=== PATIENT | female | born 1980 | race Caucasian/White ===

== ENCOUNTER → 2018-09-04 10:44 | Outpatient (CLI) | payer OTHER, SELFPAY ==
--- NOTE | 2018-09-04 10:45 | DI.RAD.S_ITS ---
PROCEDURE: XR HAND RT MIN 3V INDICATIONS: pain in basal joint and thumb dip TECHNIQUE: 4 views of the hand(s) acquired. COMPARISON: None. FINDINGS: Bones: No fractures or dislocations. Carpal bones are normally aligned. No suspicious bony lesions. Soft tissues: No suspicious soft tissue calcifications. IMPRESSION: No fracture. No focal osseous destruction to suggest advanced osteomyelitis. Dictated by: Yosef Roche M.D. on 09/04/2018 at 13:27 Approved by: Yosef Roche M.D. on 09/04/2018 at 13:29
== END ==
PROVIDERS: Family Provider Family Medicine; PCP Family Medicine; Visit Provider Family Medicine
DX: M79.641 Pain in right hand (principal)
CPT/HCPCS: 73130

== ENCOUNTER → 2018-09-22 12:07 | Outpatient (CLI) | payer OTHER, SELFPAY ==
--- NOTE | 2018-09-22 12:08 | DI.US.S_ITS ---
PROCEDURE: US PELVIC COMPLETE INDICATIONS: IRREGULAR BLEEDING AND CRAMPING TECHNIQUE: Real-time scanning was performed of the pelvic organs, with image documentation. Additional endovaginal scanning was necessary due to incomplete visualization of the adnexal and endometrial structures by transabdominal scanning. COMPARISON: [facility], US, PELVIC COMPLETE, 02/06/2015, 16:47. FINDINGS: Transabdominal scanning: Limited scanning through the kidneys shows no hydronephrosis. No pathologic free abdominal or pelvic fluid. Endovaginal scanning: Uterus: Uterus is normal in size at 8.7 x 5.9 x 6.4 cm. The endometrium measures 3 mm in combined thickness. There is mild irregularity seen along the endometrial stripe. An IUD is seen at its expected location. Ovaries: The right ovary measures 3.2 x 2.4 x 3.6 cm. The left ovary measures 2 x 1.7 x 1.7 cm. The ovaries have a normal sonographic appearance, with physiologic appearing cysts are seen. No adnexal masses are seen. IMPRESSION: No significant pelvic ultrasound abnormality is seen, although mild irregularity can be seen along the endometrial stripe. Physiologic appearing ovarian cysts are incidentally noted. The IUD is seen at its expected location. Dictated by: Leon Hernandez M.D. on 09/22/2018 at 13:09 Approved by: Leon Hernandez M.D. on 09/22/2018 at 13:11
== END ==
PROVIDERS: PCP Family Medicine; Visit Provider Family Medicine
DX: N92.6 Irregular menstruation, unspecified (principal); Z97.5 Presence of (intrauterine) contraceptive device
CPT/HCPCS: 76830; 76856

== ENCOUNTER → 2019-02-28 11:41 | Outpatient (CLI) | payer OTHER, SELFPAY ==
[2019-02-28 12:12] LABS: Add Manual Diff / Slide Review NO; Basophils Absolute Auto 0 /uL (0-100); Basophils Percent Auto 0.8 % (0-2); Eosinophils Absolute Auto 100 /uL (0-450); Eosinophils Percent Auto 1.9 % (2-4); Hematocrit 34.1 % (36-46); Hemoglobin 11.4 g/dL (12.0-16.0); Lymphocytes Absolute Auto 1000 /uL (1100-4500); Lymphocytes Percent Auto 23.2 % (25-40); Mean Corpuscular HGB Conc 33.4 % (30-36); Mean Corpuscular Volume 89.7 fL (80-100); Monocytes Absolute Auto 400 /uL (0-900); Neutrophils Absolute Auto 2700 /uL (1500-7000); Neutrophils Percent Auto 64.1 % (50-75); Platelet Count 182 X10^3/uL (150-400); Red Blood Cell Count 3.81 X10^6/uL (4.0-5.2); Red Cell Distribution Width 12.5 % (11.6-14.8); White Blood Cell Count 4.3 X10^3/uL (4.5-11.0)
[2019-02-28 13:08] LABS: HEMOLYSIS < 15 (0-50); Iron 31 ug/dL (37-170)
[2019-02-28 13:19] LABS: Percent Iron Saturation 9 % (15-50); Total Iron Binding Capacity 337 ug/dL (265-497); Transferrin 246 mg/dL (206-381)
[2019-02-28 13:58] LABS: Ferritin 6.7 ng/mL (6.27-137)
== END ==
PROVIDERS: PCP Family Medicine; Visit Provider Family Medicine
DX: D50.9 Iron deficiency anemia, unspecified (principal); D69.6 Thrombocytopenia, unspecified
CPT/HCPCS: 36415; 82728; 83540; 83550; 85025

== ENCOUNTER → 2019-04-09 10:13 | Outpatient (CLI) | payer OTHER, SELFPAY ==
[2019-04-09 11:17] LABS: Iron 71 ug/dL (37-170)
[2019-04-09 11:33] LABS: Reticulocyte Count, Percent 0.9 % (1.06-2.63)
[2019-04-09 11:36] LABS: Ferritin 97.2 ng/mL (6.27-137)
== END ==
PROVIDERS: PCP Family Medicine; Visit Provider Family Medicine
DX: R79.0 Abnormal level of blood mineral (principal)
CPT/HCPCS: 36415; 82728; 83540; 85045

== ENCOUNTER → 2019-09-28 09:09 | Outpatient (CLI) | payer OTHER, SELFPAY ==
[2019-09-28 10:47] LABS: Add Manual Diff / Slide Review NO; Basophils Absolute Auto 0 /uL (0-100); Basophils Percent Auto 0.6 % (0-2); Eosinophils Absolute Auto 100 /uL (0-450); Eosinophils Percent Auto 1.7 % (2-4); Hemoglobin 12.8 g/dL (12.0-16.0); Lymphocytes Absolute Auto 1000 /uL (1100-4500); Lymphocytes Percent Auto 18.7 % (25-40); Mean Corpuscular HGB Conc 34.7 % (30-36); Mean Corpuscular Hemoglobin 31.1 PG (26-34); Mean Corpuscular Volume 89.5 fL (80-100); Monocytes Absolute Auto 400 /uL (0-900); Monocytes Percent Auto 6.6 % (3-14); Neutrophils Absolute Auto 3900 /uL (1500-7000); Neutrophils Percent Auto 72.4 % (50-75); Platelet Count 148 X10^3/uL (150-400); Red Blood Cell Count 4.14 X10^6/uL (4.0-5.2); Red Cell Distribution Width 12.3 % (11.6-14.8); White Blood Cell Count 5.4 X10^3/uL (4.5-11.0)
== END ==
PROVIDERS: PCP Family Medicine; Visit Provider Family Medicine
DX: D50.9 Iron deficiency anemia, unspecified (principal)
CPT/HCPCS: 36415; 85025

== ENCOUNTER → 2020-10-24 15:46 | Outpatient (CLI) | payer OTHER, SELFPAY ==
[2020-10-24] MEDS: COVID-19 VACC(MODERNA-1)/PF 100 MCG/0.5 ML VIAL IM (15:53)
== END ==
PROVIDERS: PCP Family Medicine; Visit Provider Internal Medicine
DX: Z23 Encounter for immunization (principal)
CPT/HCPCS: 0011A; 91301

== ENCOUNTER → 2020-11-20 15:17 | Outpatient (CLI) | payer OTHER, SELFPAY ==
[2020-11-20] MEDS: COVID-19 VACC #2, MRNA(MOD) 100 MCG/0.5 ML VIAL IM (15:29)
== END ==
PROVIDERS: PCP Family Medicine; Visit Provider Internal Medicine
DX: Z23 Encounter for immunization (principal)
CPT/HCPCS: 0012A; 91301

== ENCOUNTER → 2021-05-04 08:14 | Outpatient (CLI) | payer OTHER, SELFPAY ==
[2021-05-04 09:22] LABS: Add Manual Diff / Slide Review NO; Basophils Absolute Auto 0 /uL (0-100); Basophils Percent Auto 0.6 % (0-2); Eosinophils Absolute Auto 100 /uL (0-450); Hematocrit 37.7 % (36-46); Hemoglobin 12.9 g/dL (12.0-16.0); Lymphocytes Absolute Auto 800 /uL (1100-4500); Lymphocytes Percent Auto 21.4 % (25-40); Mean Corpuscular HGB Conc 34.1 % (30-36); Mean Corpuscular Hemoglobin 30.9 PG (26-34); Mean Corpuscular Volume 90.8 fL (80-100); Monocytes Absolute Auto 300 /uL (0-900); Monocytes Percent Auto 8.2 % (3-14); Neutrophils Absolute Auto 2500 /uL (1500-7000); Neutrophils Percent Auto 66.8 % (50-75); Platelet Count 176 X10^3/uL (150-400); Red Blood Cell Count 4.15 X10^6/uL (4.0-5.2); Red Cell Distribution Width 12.7 % (11.6-14.8); White Blood Cell Count 3.7 X10^3/uL (4.5-11.0)
[2021-05-04 09:28] LABS: Alanine Aminotransferase 20 IU/L (<35); Albumin Globulin Ratio 1.3 (1.0-2.8); Alkaline Phosphatase 45 U/L (38-126); Aspartate Aminotransferase 26 IU/L (14-36); BUN Creatinine Ratio 17.9 (6-22); Bilirubin Total 0.5 mg/dL (0.2-1.3); Blood Urea Nitrogen 14 mg/dL (7-17); Calcium 9.2 mg/dL (8.4-10.2); Carbon Dioxide 27 mmol/L (22-32); Chloride 106 mmol/L (98-107); Cholesterol 189 mg/dL (140-199); Estimated Glomerular Filt Rate > 60.0 mL/min (>60); Glucose 94 mg/dL (70-100); HDL Cholesterol 39 mg/dL (40-60); HEMOLYSIS < 15 (0-50); LDL Cholesterol Calculated 126 mg/dL (<100); Potassium 4.7 mmol/L (3.4-5.1); Sodium 138 mmol/L (137-145); Triglycerides 122 mg/dL (35-150)
[2021-05-04 09:38] LABS: HEMOLYSIS < 15 (0-50); Iron 95 ug/dL (37-170)
[2021-05-04 09:50] LABS: Percent Iron Saturation 28 % (15-50); Total Iron Binding Capacity 342 ug/dL (265-497); Transferrin 252 mg/dL (206-381)
[2021-05-04 10:00] LABS: Ferritin 21 ng/mL (6-137)
== END ==
PROVIDERS: PCP Family Medicine; Referring Provider Family Medicine; Visit Provider Family Medicine
DX: D64.9 Anemia, unspecified (principal); D69.6 Thrombocytopenia, unspecified; N92.1 Excessive and frequent menstruation with irregular cycle; Z83.3 Family history of diabetes mellitus; R63.5 Abnormal weight gain
CPT/HCPCS: 36415; 80053; 80061; 82728; 83540; 83550; 84443; 85025

== ENCOUNTER → 2021-05-18 10:22 | Outpatient (CLI) | payer OTHER, SELFPAY ==
--- NOTE | 2021-05-18 10:23 | DI.US.S_ITS ---
PROCEDURE: US PELVIC COMPLETE INDICATIONS: ABNORMAL BLEEDING TECHNIQUE: Real-time scanning was performed of the pelvic organs, with image documentation. Additional endovaginal scanning was necessary due to incomplete visualization of the adnexal and endometrial structures by transabdominal scanning. COMPARISON: [facility], US, US PELVIC COMPLETE, 07/19/2019, 12:01. FINDINGS: Uterus: Uterus is normal in size at 11.2 x 5.6 x 5.8 cm. The endometrium measures 14.2 mm in combined thickness. 15 mm posterior intramural fibroid. Ovaries: Right ovary measures 2.5 x 1.6 x 1.8 cm and the left ovary 2.2 x 0.9 x 1.3 cm. No adnexal masses seen. Other: No pathologic free abdominal or pelvic fluid. IMPRESSION: 15 mm posterior intramural fibroid. Dictated by: Antoni Alberto [facility] Interpreted: Judd Kelly MD on 05/18/2021 at 11:26 Transcribed by: ALESSANDRO on 05/18/2021 at 11:28 Approved by: Judd Kelly M.D. on 05/18/2021 at 15:41
== END ==
PROVIDERS: PCP Family Medicine; Referring Provider Obstetrics & Gynecology; Visit Provider Obstetrics & Gynecology
DX: N92.1 Excessive and frequent menstruation with irregular cycle (principal); D50.0 Iron deficiency anemia secondary to blood loss (chronic); D25.1 Intramural leiomyoma of uterus
CPT/HCPCS: 76830; 76856

== ENCOUNTER → 2021-08-21 09:12 | Outpatient (CLI) | payer OTHER, SELFPAY ==
[2021-08-21 10:23] LABS: Add Manual Diff / Slide Review NO; Basophils Absolute Auto 0 /uL (0-100); Basophils Percent Auto 0.7 % (0-2); Eosinophils Absolute Auto 100 /uL (0-450); Eosinophils Percent Auto 2.6 % (2-4); Hematocrit 35.9 % (36-46); Hemoglobin 11.8 g/dL (12.0-16.0); Lymphocytes Absolute Auto 900 /uL (1100-4500); Lymphocytes Percent Auto 23.7 % (25-40); Mean Corpuscular HGB Conc 32.9 % (30-36); Mean Corpuscular Hemoglobin 28.3 PG (26-34); Monocytes Absolute Auto 300 /uL (0-900); Monocytes Percent Auto 8.3 % (3-14); Neutrophils Absolute Auto 2400 /uL (1500-7000); Neutrophils Percent Auto 64.7 % (50-75); Platelet Count 192 X10^3/uL (150-400); Red Blood Cell Count 4.17 X10^6/uL (4.0-5.2); Red Cell Distribution Width 13.2 % (11.6-14.8); White Blood Cell Count 3.8 X10^3/uL (4.5-11.0)
== END ==
PROVIDERS: PCP Family Medicine; Referring Provider Family Medicine; Visit Provider Family Medicine
DX: D64.9 Anemia, unspecified (principal); N92.1 Excessive and frequent menstruation with irregular cycle
CPT/HCPCS: 36415; 85025

== ENCOUNTER → 2021-08-25 09:14 | Outpatient (CLI) | payer OTHER, SELFPAY ==
[2021-08-25 11:25] LABS: Ferritin 9 ng/mL (6-137)
[2021-08-25 12:27] LABS: HEMOLYSIS < 15 (0-50); Iron 106 ug/dL (37-170)
[2021-08-25 12:38] LABS: Percent Iron Saturation 29 % (15-50); Total Iron Binding Capacity 369 ug/dL (265-497); Transferrin 285 mg/dL (206-381)
== END ==
PROVIDERS: PCP Family Medicine; Referring Provider Family Medicine; Visit Provider Family Medicine
DX: D50.0 Iron deficiency anemia secondary to blood loss (chronic) (principal); D69.6 Thrombocytopenia, unspecified; R89.9 Unspecified abnormal finding in specimens from other organs, systems and tissues
CPT/HCPCS: 36415; 82728; 83540; 83550

== ENCOUNTER → 2021-08-27 09:51 | Outpatient (CLI) | payer OTHER, SELFPAY ==
--- NOTE | 2021-08-27 09:52 | DI.RAD.S_ITS ---
PROCEDURE: XR NASAL BONES MIN 3V INDICATIONS: possible broken nose TECHNIQUE: 4 views of the nasal bones acquired. COMPARISON: None. FINDINGS: Bones: No fractures or dislocations. Nasal septum is midline. Normal nasociliary nerve grooves are noted. Soft tissues: No suspicious soft tissue calcifications. IMPRESSION: Normal nasal bone series. Dictated by: Lupillo Boland M.D. on 08/27/2021 at 15:25 Approved by: Lupillo Boland M.D. on 08/27/2021 at 15:27
== END ==
PROVIDERS: PCP Family Medicine; Referring Provider Nurse Practitioner Family; Visit Provider Nurse Practitioner Family
DX: S09.92XA Unspecified injury of nose, initial encounter (principal); X58.XXXA Exposure to other specified factors, initial encounter
CPT/HCPCS: 70160

== ENCOUNTER 2022-02-09 10:12 | Observation (INO) | payer OTHER, SELFPAY ==
[2022-02-09] VITALS (16 sets, daily range): BP systolic 110–138; BP diastolic 68–85; PULSE 61–90; RESP 10–20; TEMP 36.3–36.6; O2SAT 96–100; BMI 20.3
--- NOTE | 2022-02-09 | PATH_ITS ---
[facility] Accession Number: [id number] . 01 Material submitted: . fallopian tube - BILATERAL FALLOPIAN TUBES . 02 Diagnosis: Bilateral Fallopian Tubes, Bilateral Tubal Ligation: Fallopian tubes x2, complete cross sections; negative for atypia or malignancy. MRV 02/15/2022 1139 Local . 02 Electronically signed: . Julia Atwood MD, Pathologist NPI- [id number] . 01 Gross description: . The specimen is received in formalin, labeled bilateral fallopian tubes, and consists of two fimbriated fallopian tubes measuring 6.4 x 0.6 cm and 7.0 x 0.6 cm. Sectioning reveal an aggregate of hemorrhagic material involving the lumen of the lower fallopian tube adjacent to the fimbriae. The remaining sections reveal stellate patent lumens free of gross abnormalities. The specimen is representatively submitted as follows: . A1: Cross sections and employer relations representative sections of fimbriae from shorter fallopian tube. A2: Cross sections and employer relations representative sections of fimbriae from longer fallopian tube. ([id number]) /MRV 02/10/2022 1150 Local . 02 Pathologist provided ICD-10: Z30.2 . 02 CPT . 055272 Specimen Comment: A courtesy copy of this report has been sent to [phone] Performed at: 01 [facility] [address] [facility] [place], [place], [place] [id number] MD Robert Andersen MD Phone: [phone] Performed at: 02 [facility] [address] [place], [place] [id number] MD Masha Paul MD Phone: [phone]
--- NOTE | 2022-02-09 10:27 | DI.US.S_ITS ---
PROCEDURE: US PELVIC COMPLETE INDICATIONS: heavy vaginal bleeding TECHNIQUE: Real-time scanning was performed of the pelvic organs, with image documentation. Additional endovaginal scanning was necessary due to incomplete visualization of the adnexal and endometrial structures by transabdominal scanning. COMPARISON: [facility], , US PELVIC COMPLETE, 05/18/2021, 9:47. FINDINGS: Uterus: Uterus is anteverted and normal in size at 9.5 x 4.9 x 6.2 cm. The myometrium is homogeneous. The endometrium measures 7 mm combined thickness. There is a 0.7 x 0.4 x 0.8 cm hypodense lesion within the left, anterior aspect of the uterine fundus likely representing an intramural fibroid. Ovaries: The right ovary measures 2.0 x 1.4 x 2.1 cm. The left ovary measures 1.8 x 1.3 x 1.8 cm. The ovaries have a normal sonographic appearance. No adnexal masses are seen. The Other: No pathologic free abdominal or pelvic fluid. IMPRESSION: Pelvic ultrasound without acute sonographic abnormalities. Suspected subcentimeter intramural uterine fibroid. No abnormalities identified to explain patient's abnormal bleeding. We strive to produce accurate, complete, and clear reports of imaging services. To assist us in improving patient care, this report was composed using standard report templates and voice recognition software. Therefore, it may contain abnormal punctuation, insertions and/or omissions. Occasional wrong-word or sound-alike substitutions may occur. Though we review the report and make efforts to correct it, we do recommend that the report be read carefully in proper context to recognize any text inaccuracies. Dictated by: Don Andrew M.D. on 02/09/2022 at 12:14 Approved by: Don Andrew M.D. on 02/09/2022 at 12:18
--- NOTE | 2022-02-09 10:43 | ED.PREGNANCY ---
HPI - <Carlos Alberto Gaytan DO - Last Filed: 02/09/22 19:26> General Chief complaint: Vaginal Bleeding Stated complaint: Heavy menstrual bleeding Time Seen by Provider: 02/09/22 10:19 Source: patient Mode of arrival: Ambulatory Limitations: no limitations History of Present Illness HPI Narrative: 41-year-old female nonsmoker with noncontributory medical history presents for evaluation of increasingly heavy vaginal bleeding with the passage of clots over the past few days. She has been on control for at least the past 6 months without any change in her dosing or missed doses and tends to have very regular menses. She is sexually active but denies any chance of . She states that for the past few days she has passed large clots, most notably upon standing. Over the course of the past 24 hours she has become dizzy, weak and lightheaded. She has had fever or chills. She denies dysuria, frequency or urgency. She states she likely is bleeding through at least 1 pad per hour Related Data Previous Rx's Medication Instructions Recorded valacyclovir 1 gram tablet See Rx Instructions .ROUTE 01/06/22 .COMPLEX #4 tab dextroamphetamine-amphetamine 5 mg 5 mg PO DAILY #90 tab 02/01/22 tablet lisdexamfetamine 50 mg capsule 50 mg PO DAILY #90 cap 02/01/22 oxycodone 5 mg tablet 5 mg PO Q4H PRN #14 tab 02/09/22 Allergies Allergy/AdvReac Type Severity Reaction Status Date / Time miconazole AdvReac Intermediate Rash Verified 02/09/22 10:26 [From Neosporin AF] Review of Systems <DO Marlin Estrada Last Filed: 02/09/22 19:26> Review of Systems Narrative: GENERAL: Denies chills, fatigue, malaise, fever, sweats. HEENT: Denies sinus pain, ear pain, sore throat, difficulty swallowing, dizziness. RESPIRATORY: Denies dyspnea, cough, wheezing, hemoptysis, sputum. CARDIOVASCULAR: Denies chest pain, palpitations, orthopnea, edema, GASTROINTESTINAL: Denies nausea, vomiting, abdominal pain, diarrhea, constipation, melena. :see HPI MUSCULOSKELETAL: denies weakness, joint pain, or bony pain SKIN: Denies rash, skin lesions, or other NEUROLOGIC: Denies weakness, headache, numbness, change in speech, confusion, seizures, incoordination. PSYCHIATRIC: No concerning psychosocial issues. 12 point review of systems is negative except for those stated above Exam <Carlos Alberto Gaytan DO - Last Filed: 02/09/22 19:26> Narrative Exam Narrative: GENERAL: [41] year old patient appears stated age. Well-developed patient, in mild distress. HEAD: Atraumatic. Normocephalic. EYES: Pupils equal round and reactive. Extraocular motions intact. No scleral icterus. No injection or drainage. ENT: Nose without bleeding, purulent drainage. Throat without erythema, tonsillar hypertrophy or exudate. Airway patent. NECK: Trachea midline. Non tender CARDIOVASCULAR: Regular rate and rhythm without murmurs, gallops, or rubs. RESPIRATORY: Clear to auscultation. Breath sounds equal bilaterally. No wheezes, rales, or rhonchi. GASTROINTESTINAL: Abdomen soft, non-tender, nondistended. PELVIC: Multiple large clots removed, bleeding flown closed cervical os rather brisk and feels visual field within 30 seconds or less. EXTREMITIES: No edema or joint tenderness. BACK: Nontender without deformity or crepitance. No flank tenderness. NEURO: AOx3. SKIN: No rash or erythema of visible areas Initial Vital Signs Initial Vital Signs: Vital Signs Temperature 97.4 F L 02/09/22 10:20 Pulse Rate 90 02/09/22 10:20 Respiratory Rate 18 02/09/22 10:20 Blood Pressure 138/78 02/09/22 10:20 Pulse Oximetry 99 02/09/22 10:20 Course <Carlos Alberto Gaytan DO - Last Filed: 02/09/22 19:26> Orders Ordered: ED Orders 02/09/22 10:27 US pelvic complete Stat Type and Screen Stat 02/09/22 11:18 Urine Culture Stat Urine Microscopic Stat 02/09/22 11:40 Complete Blood Count AUTO DIFF Stat Comprehensive Metabolic Panel Stat HCG Quantitative /Beta subunit Stat 02/09/22 12:35 COVID19 -Nasal RAPID/Pre-Proc Stat Benzocaine (Benzocaine/Menthol 1 Ernesto Pkt) 1 each PO PRN PRN PRN Reason: Sore Throat Fentanyl (Fentanyl 100 Mcg/2 Ml Inj) 0 mcg IV Q5M PRN PRN Reason: Pain, Moderate (4-6) Hydromorphone HCl (Hydromorphone 2 Mg Inj) 0 mg IV Q5MIN PRN PRN Reason: Pain, Mild (1-3) Lactated Ringer's (Lactated Ringers) 1,000 mls @ 42 mls/hr IV CONT BILLY Last Admin: 02/09/22 19:24 Dose: 42 mls/hr Documented by: CARLOS A Infusion: 02/09/22 19:20 Dose: 0 mls/hr Documented by: CARLOS A Admin: 02/09/22 16:47 Dose: 42 mls/hr Documented by: NIC Lactated Ringer's (Lactated Ringers) 1,000 mls @ 100 mls/hr IV CONT BILLY Meperidine HCl (Meperidine 50 Mg/Ml Inj) 25 mg IV PACUNOW PRN PRN Reason: Moderate pain or shivering Ondansetron HCl (Ondansetron 4 Mg/2 Ml Inj) 4 mg IV NOW PRN PRN Reason: Nausea And Vomiting Oxycodone/Acetaminophen (Oxycodone/Acetaminophen 5/325 Tablet) 1 tab PO PACUNOW PRN PRN Reason: Mild or Moderate Pain Oxycodone/Acetaminophen (Oxycodone/Acetaminophen 5/325 Tablet) 1 tab PO Q4HR PRN PRN Reason: Pain, Moderate (4-6) Discontinued Medications Bupivacaine HCl 30 ml/ (Epinephrine HCl 0.15 mg) 0 ml INJ NOW ONE Stop: 02/09/22 18:12 Last Admin: 02/09/22 18:13 Dose: 20 ml Documented by: LARON Medroxyprogesterone Acetate (Medroxyprogesterone Acetate 10 Mg Tablet) 20 mg PO NOW ONE Stop: 02/09/22 13:46 Last Admin: 02/09/22 14:00 Dose: 20 mg Documented by: SHAE Medroxyprogesterone Acetate (Medroxyprogesterone Acetate 10 Mg Tablet) 20 mg PO NOW ONE Stop: 02/09/22 16:10 Last Admin: 02/09/22 16:45 Dose: 20 mg Documented by: NIC Consultations Consultation #1: Call to Dr. Mix, she has reviewed the clinical case up until this point including prior notes from her partners. She will evaluate the patient at bedside but likely will take to the OR this afternoon Vital Signs Vital signs: Vital Signs - 8 hr 02/09/22 12:37 02/09/22 13:34 02/09/22 14:00 Pulse Rate 77 76 79 Respiratory Rate Blood Pressure 126/71 111/71 112/71 Pulse Oximetry 96 100 100 02/09/22 14:30 02/09/22 15:00 Pulse Rate 80 76 Respiratory Rate 14 Blood Pressure 117/73 114/74 Pulse Oximetry 100 99 MDM - OB/Uterine Contractions <Carlos Alberto Gaytan DO - Last Filed: 02/09/22 19:26> Lab Data Result diagrams: 02/09/22 11:40 02/09/22 11:40 Labs: Lab Results 02/09/22 02/09/22 02/09/22 Range/Units 10:27 11:18 11:40 WBC 4.0 L (4.5-11.0) X10^3/uL RBC 3.84 L (4.0-5.2) X10^6/uL Hgb 10.7 L (12.0-16.0) g/dL Hct 32.0 L (36-46) % MCV 83.3 (80-100) fL MCH 27.9 (26-34) PG MCHC 33.5 (30-36) % RDW 13.5 (11.6-14.8) % Plt Count 190 (150-400) X10^3/uL Neut % (Auto) 63.2 (50-75) % Lymph % (Auto) 25.0 (25-40) % [place] % (Auto) 9.7 (3-14) % Eos % (Auto) 1.5 L (2-4) % Baso % (Auto) 0.6 (0-2) % Neut # (Auto) 2600 (6647-5494) /uL Lymph # (Auto) 1000 L (2351-2397) /uL [place] # (Auto) 400 (0-900) /uL Eos # (Auto) 100 (0-450) /uL Baso # (Auto) 0 (0-100) /uL Sodium (137-145) mmol/L Potassium (3.4-5.1) mmol/L Chloride (98-107) mmol/L Carbon Dioxide (22-32) mmol/L BUN (7-17) mg/dL Creatinine (0.52-1.04) mg/dL Estimated GFR (>60) mL/min BUN/Creatinine Ratio (6-22) Glucose (70-100) mg/dL Calcium (8.4-10.2) mg/dL Total Bilirubin (0.2-1.3) mg/dL AST (14-36) IU/L ALT (<35) IU/L Alkaline Phosphatase (38-126) U/L Total Protein (6.3-8.2) g/dL Albumin (3.5-5.0) g/dL Globulin (1.7-4.1) g/dL Albumin/Globulin Ratio (1.0-2.8) HCG, Quant mIU/mL Urine RBC 30-100/hpf H (0-5/HPF) Urine WBC 1-5/hpf (0-5/HPF) Ur Squamous Epith Cells 1-5 /hpf (0-5/HPF) Urine Bacteria None seen (None) Ur Culture Indicated? Cult not indicated SARS-CoV-2 (PCR) (Negative) Blood Type A Negative Antibody Screen Negative 02/09/22 02/09/22 Range/Units 11:40 12:35 WBC (4.5-11.0) X10^3/uL RBC (4.0-5.2) X10^6/uL Hgb (12.0-16.0) g/dL Hct (36-46) % MCV (80-100) fL MCH (26-34) PG MCHC (30-36) % RDW (11.6-14.8) % Plt Count (150-400) X10^3/uL Neut % (Auto) (50-75) % Lymph % (Auto) (25-40) % R[place]ford % (Auto) (3-14) % Eos % (Auto) (2-4) % Baso % (Auto) (0-2) % Neut # (Auto) (9547-5332) /uL Lymph # (Auto) (5804-9357) /uL Rutherford # (Auto) (0-900) /uL Eos # (Auto) (0-450) /uL Baso # (Auto) (0-100) /uL Sodium 139 (137-145) mmol/L Potassium 4.0 (3.4-5.1) mmol/L Chloride 107 (98-107) mmol/L Carbon Dioxide 29 (22-32) mmol/L BUN 18 H (7-17) mg/dL Creatinine 0.76 (0.52-1.04) mg/dL Estimated GFR > 60 (>60) mL/min BUN/Creatinine Ratio 23.7 H (6-22) Glucose 90 (70-100) mg/dL Calcium 8.5 (8.4-10.2) mg/dL Total Bilirubin 0.3 (0.2-1.3) mg/dL AST 24 (14-36) IU/L ALT 15 (<35) IU/L Alkaline Phosphatase 50 (38-126) U/L Total Protein 6.7 (6.3-8.2) g/dL Albumin 3.8 (3.5-5.0) g/dL Globulin 2.9 (1.7-4.1) g/dL Albumin/Globulin Ratio 1.3 (1.0-2.8) HCG, Quant < 2.4 mIU/mL Urine RBC (0-5/HPF) Urine WBC (0-5/HPF) Ur Squamous Epith Cells (0-5/HPF) Urine Bacteria (None) Ur Culture Indicated? SARS-CoV-2 (PCR) Negative (Negative) Blood Type Antibody Screen Point of Care Testing Test Results Negative Urine Dip Bedside Urine Glucose Negative Bedside Urine Bilirubin - Negative Bedside Urine Ketone - Negative Urine Specific [place] 1.015 Bedside Urine Occult Blood +++ Bedside Urine pH 7.5 Bedside Urine Protein +/- 15 Bedside Urine Urobilinogen - Negative Bedside Urine Nitrite - Negative Bedside Urine Leukocytes - Negative Esterase Imaging Data US - SERVICE MANAGER: Radiologist's Impression: [address] [address] Ultrasound Report Signed Patient: Karon Florentino MR#: [id number] : 1980 Acct:[id number] Age/Sex: 41 / F Date of Service: 02/09/22 Loc: ED Accession Number: [id number] ?? Procedure: US pelvic complete Ordering Provider: Carlos Alberto Gaytan D.O. PROCEDURE:? US PELVIC COMPLETE ? INDICATIONS:? heavy vaginal bleeding ? TECHNIQUE:? Real-time scanning was performed of the pelvic organs, with image documentation.? Additional endovaginal scanning was necessary due to incomplete visualization of the adnexal and endometrial structures by transabdominal scanning.? ? COMPARISON:? [facility], , US PELVIC COMPLETE, 05/18/2021, 9:47. ? FINDINGS:? ?? Uterus:? Uterus is anteverted and normal in size at 9.5 x 4.9 x 6.2 cm. The myometrium is homogeneous. ? The endometrium measures 7 mm combined thickness.? There is a 0.7 x 0.4 x 0.8 cm hypodense lesion within the left, anterior aspect of the uterine fundus likely representing an intramural fibroid. ? Ovaries:? The right ovary measures 2.0 x 1.4 x 2.1 cm. The left ovary measures 1.8 x 1.3 x 1.8 cm. The ovaries have a normal sonographic appearance. No adnexal masses are seen.? The? Other:? No pathologic free abdominal or pelvic fluid. ? ? IMPRESSION:? Pelvic ultrasound without acute sonographic abnormalities.? Suspected subcentimeter intramural uterine fibroid.? No abnormalities identified to explain patient's abnormal bleeding. ? ? We strive to produce accurate, complete, and clear reports of imaging services. To assist us in improving patient care, this report was composed using standard report templates and voice recognition software. Therefore, it may contain abnormal punctuation, insertions and/or omissions. Occasional wrong-word or sound-alike substitutions may occur. Though we review the report and make efforts to correct it, we do recommend that the report be read carefully in proper context to recognize any text inaccuracies. ? ? Dictated by: Don Andrew M.D. on 02/09/2022 at 12:14 ? ? Approved by: Don Andrew M.D. on 02/09/2022 at 12:18 ? Discharge Plan Departure Patient Disposition: Admitted to Surgery Clinical Impression: Abnormal vaginal bleeding Admit Date/Time: 02/09/22 15:04 Admit Provider: Ute Mix
[2022-02-09 11:37] LABS: Bacteria Urine None Seen; Culture Indicated Urine Cult Not Indicated; RBC Urine 30-100/HPF (0-5/HPF); Squamous Epithelial Cell Urine 1-5 /HPF (0-5/HPF); WBC Urine 1-5/HPF (0-5/HPF)
[2022-02-09 12:00] LABS: Add Manual Diff / Slide Review NO; Basophils Absolute Auto 0 /uL (0-100); Basophils Percent Auto 0.6 % (0-2); Eosinophils Absolute Auto 100 /uL (0-450); Eosinophils Percent Auto 1.5 % (2-4); Hemoglobin 10.7 g/dL (12.0-16.0); Lymphocytes Absolute Auto 1000 /uL (1100-4500); Mean Corpuscular HGB Conc 33.5 % (30-36); Mean Corpuscular Hemoglobin 27.9 PG (26-34); Mean Corpuscular Volume 83.3 fL (80-100); Monocytes Absolute Auto 400 /uL (0-900); Monocytes Percent Auto 9.7 % (3-14); Neutrophils Absolute Auto 2600 /uL (1500-7000); Neutrophils Percent Auto 63.2 % (50-75); Platelet Count 190 X10^3/uL (150-400); Red Blood Cell Count 3.84 X10^6/uL (4.0-5.2); Red Cell Distribution Width 13.5 % (11.6-14.8)
[2022-02-09 12:25] LABS: Alanine Aminotransferase 15 IU/L (<35); Albumin 3.8 g/dL (3.5-5.0); Albumin Globulin Ratio 1.3 (1.0-2.8); Alkaline Phosphatase 50 U/L (38-126); Aspartate Aminotransferase 24 IU/L (14-36); BUN Creatinine Ratio 23.7 (6-22); Bilirubin Total 0.3 mg/dL (0.2-1.3); Blood Urea Nitrogen 18 mg/dL (7-17); Calcium 8.5 mg/dL (8.4-10.2); Carbon Dioxide 29 mmol/L (22-32); Chloride 107 mmol/L (98-107); Estimated Glomerular Filt Rate > 60 mL/min (>60); Globulin 2.9 g/dL (1.7-4.1); Glucose 90 mg/dL (70-100); HEMOLYSIS < 15 (0-50); Sodium 139 mmol/L (137-145); Total Protein 6.7 g/dL (6.3-8.2)
[2022-02-09 12:41] LABS: HCG Quantitative /Beta subunit < 2.4 mIU/mL
[2022-02-09 13:04] LABS: COVID19 -Nasal RAPID Negative (Negative)
[2022-02-09] MEDS: MEDROXYPROGESTERONE ACETATE 10 MG TABLET 20 MG PO ×2 (14:00→16:45)
--- NOTE | 2022-02-09 15:29 | PC.NURSE ---
pt jewelry is off and in front pocket of green purse prior to OR. no earring in today, rings and watch only. pt cloting in belonging bag sent with patient to OR. laptop in bag with pt as well pt voided and undressed at 1525. only has underwear and socks on
[2022-02-09] MEDS: LACTATED RINGERS 1,000 ML 42 ML IV ×2 (16:47→19:24)
--- NOTE | 2022-02-09 17:44 | P.HP_ITS ---
History of Present Illness History of Present Illness Date Patient Seen: 02/09/22 Time Patient Seen: 13:30 Chief complaint: Heavy menstrual bleeding Narrative: Patient is a 41-year-old 4 para 4 who presents from the emergency department with abnormal uterine bleeding with significant anemia. On ultrasound she had a fibroid. She desires permanent sterilization. She has been on control pills to control the bleeding but this has not worked. 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 Grandfather Cirrhosis of liver Mother No problems noted. Grandmother Type 1 diabetes Sister No problems noted. Sister No problems noted. Sister No problems noted. Grandfather No problems noted. Social History: household members spouse Safety & Behavioral: Feels Safe in Current Yes Environment Been Physically Hurt or No Threatened By a Person Tobacco & Substance use: Smoking Status Never smoker alcohol intake never alcohol intake frequency 0-2 drinks per day Substance Use Type does not use Meds Home Medications and Allergies Home Medications Medication Instructions Recorded Confirmed Type drospirenone 3 mg-ethinyl 1 tab PO DAILY #84 tab 06/24/21 02/01/22 Rx estradiol 0.03 mg tablet (Irena (28)) valacyclovir 1 gram tablet See Rx Instructions .ROUTE 01/06/22 02/01/22 Rx .COMPLEX #4 tab dextroamphetamine-amphetamine 5 mg 5 mg PO DAILY #90 tab 02/01/22 02/01/22 Rx tablet lisdexamfetamine 50 mg capsule 50 mg PO DAILY #90 cap 02/01/22 02/01/22 Rx oxycodone 5 mg tablet 5 mg PO Q4H PRN #14 tab 02/09/22 Rx Allergies Allergy/AdvReac Type Severity Reaction Status Date / Time miconazole AdvReac Intermediate Rash Verified 02/09/22 10:26 [From Neosporin AF] Exam Vital Signs (past 8 hours): - 02/09/22 10:20 02/09/22 12:37 02/09/22 13:34 Temperature 97.4 F L Pulse Rate 90 77 76 Respiratory Rate 18 Blood Pressure 138/78 126/71 111/71 Pulse Oximetry 99 96 100 02/09/22 14:00 02/09/22 14:30 02/09/22 15:00 Temperature Pulse Rate 79 80 76 Respiratory Rate 14 Blood Pressure 112/71 117/73 114/74 Pulse Oximetry 100 100 99 02/09/22 16:31 Temperature 97.9 F Pulse Rate 80 Respiratory Rate 20 Blood Pressure 116/77 Pulse Oximetry 98 Oxygen Delivery Method Room Air Narrative Exam Narrative: HEENT: No thyromegaly, no anterior cervical or supraclavicular lymphadenopathy. Lungs:Clear to auscultation bilaterally, no wheezes. Cardiovascular: Regular rate and rhythm, no murmurs, rubs, or gallops. Abdomen: No scars. No hepatosplenomegaly. No masses palpable. External genitalia: Normal Vagina: Normal Cervix: Normal Bimanual exam: 10 Week size anteverted uterus. Mobile. No adnexal masses or tenderness Extremities: No edema Objective Labs Result Diagrams: 02/09/22 11:40 02/09/22 11:40 Labs: Laboratory Results - last 24 hr 02/09/22 02/09/22 02/09/22 10:27 11:18 11:40 WBC 4.0 L RBC 3.84 L Hgb 10.7 L Hct 32.0 L MCV 83.3 MCH 27.9 MCHC 33.5 RDW 13.5 Plt Count 190 Neut % (Auto) 63.2 Lymph % (Auto) 25.0 [place] % (Auto) 9.7 Eos % (Auto) 1.5 L Baso % (Auto) 0.6 Neut # (Auto) 2600 Lymph # (Auto) 1000 L [place] # (Auto) 400 Eos # (Auto) 100 Baso # (Auto) 0 Sodium Potassium Chloride Carbon Dioxide BUN Creatinine Estimated GFR BUN/Creatinine Ratio Glucose Calcium Total Bilirubin AST ALT Alkaline Phosphatase Total Protein Albumin Globulin Albumin/Globulin Ratio HCG, Quant Urine RBC 30-100/hpf H Urine WBC 1-5/hpf Ur Squamous Epith Cells 1-5 /hpf Urine Bacteria None seen Ur Culture Indicated? Cult not indicated SARS-CoV-2 (PCR) Blood Type A Negative Antibody Screen Negative 02/09/22 02/09/22 11:40 12:35 WBC RBC Hgb Hct MCV MCH MCHC RDW Plt Count Neut % (Auto) Lymph % (Auto) [place] % (Auto) Eos % (Auto) Baso % (Auto) Neut # (Auto) Lymph # (Auto) [place] # (Auto) Eos # (Auto) Baso # (Auto) Sodium 139 Potassium 4.0 Chloride 107 Carbon Dioxide 29 BUN 18 H Creatinine 0.76 Estimated GFR > 60 BUN/Creatinine Ratio 23.7 H Glucose 90 Calcium 8.5 Total Bilirubin 0.3 AST 24 ALT 15 Alkaline Phosphatase 50 Total Protein 6.7 Albumin 3.8 Globulin 2.9 Albumin/Globulin Ratio 1.3 HCG, Quant < 2.4 Urine RBC Urine WBC Ur Squamous Epith Cells Urine Bacteria Ur Culture Indicated? SARS-CoV-2 (PCR) Negative Blood Type Antibody Screen Assessment & Plan Assessment & Plan narrative: Assessment: 41-year-old 4 para 4 with abnormal uterine bleeding Fibroid uterus Oral contraceptives failed to control the bleeding Desires permanent sterilization Plan: Laparoscopic bilateral salpingectomy, D&C hysteroscopy with possible resection of fibroid, endometrial ablation The risks, benefits, and alternatives to the procedure were explained to the patient. The risks including bleeding, infection, injury to the bowel, bladder, ureters, or uterine perforation. She understands these risks and agrees to proceed. A full par Q was held and consent form was signed. COVID-19 COVID-19 status: Negative Result date/Date tested (Pos, Neg/Pending): 02/09/22 Time Spent With Patient Time with patient: less than 30 minutes Critical Care time: I spent a total of [] minutes of critical care time on this patient's care today; this time is exclusive of procedural time.
--- NOTE | 2022-02-09 17:47 | PM.PREOP ---
Pre-operative Note COVID-19 COVID-19 status: Negative Result date/Date tested (Pos, Neg/Pending): 02/09/22 Criteria for continued procedure: Deterioration of the patient's condition or overall health and Non-surgical alternatives not available or appropriate per current SOC Interval Note History & Physical reviewed/Exam performed by Physician: Yes Changes to H&P: No H&P completed within 30 days and has changed as indicated here:: 02/09/22
[2022-02-09] MEDS: BUPIVACAINE 0.5% (PF) 30 ML, EPINEPHrine 0.15 MG INJ (18:13)
--- NOTE | 2022-02-09 19:13 | P.OP_ITS ---
Operative Date/Time/Diagnoses Date of procedure: 02/09/22 Time of procedure: 19:14 Pre-op diagnosis: Abnormal uterine bleeding Menorrhagia Desires permanent sterilization Anemia Post-op diagnosis: same Procedure & Clinicians Procedure: Procedures Operation Date: 02/09/22 16:00 Actual Procedure Side Surgeon p Laparoscopic Salpingectomy Bilateral Ute Mix MD p Hysteroscopy D&C w/Novasure Endometrial Ablation Ute Mix MD Indications: Abnormal uterine bleeding Menorrhagia Anemia Desires permanent sterilization Surgeon: Ute Mix Anesthesia Type: General and Local Operative Notes Findings: 8 week size anteverted uterus Normal tubes and ovaries Normal liver and gallbladder Normal appendix Blood in the pelvis Length equal 4.5 With equal 3.0 Power equal 74 w Time equals 1 minute and 31 seconds Closure Type: primary Specimen(s): left tube and right tube Estimated blood loss (mL): 5 Blood products transfused: none Procedure in detail: After informed consent was obtained, the patient was taken to the operating room where she was placed in the dorsal supine position. After adequate general endotracheal anesthesia was achieved, she was placed in the dorsal lithotomy position, and prepped and draped in the usual sterile fashion. A time-out was performed. A bivalve speculum was placed into the vagina and the anterior lip of the cervix was grasped with a single-tooth tenaculum. The cervical os was sequentially dilated until the Zumi uterine manipulator could pass easily into the endometrial cavity. The single-tooth tenaculum was removed from the anterior lip of the cervix. The bivalve speculum was removed from the vagina. Attention was then turned to the abdomen where 6 cc of 0.5% Marcaine with epinephrine were injected in the umbilical fold. A 5 mm incision was made. The Veress needle was placed into the peritoneal cavity, and its placement confirmed by aspiration and drop test. The abdominal cavity was insufflated with 3.2 L of CO2. The Veress needle was removed, and a 5 mm trocar was placed without difficulty. Initial inspection of the pelvis and abdomen revealed the findings noted above. Two other incisions were made 4 cm lateral to the midline at the level of the umbilicus after 6 cc of 0.5% Marcaine with epinephrine were injected. Two 5 mm trocars were placed under direct visualization. The pelvis was examined. There was some blood in the posterior cul-de-sac. The right tube was grasped with an atraumatic grasper. Using the power seal the mesosalpinx was cauterized and cut all the way down to the cornua of the uterus. The tube was amputated at the cornua. The tube was removed through the 5 mm trocar. This was repeated on the patient's left side. Hemostasis was achieved. The pelvis was copiously irrigated with warm normal saline. No bleeding was noted. The instruments were removed from the abdomen. The CO2 was allowed to escape. The incisions were repaired with 4 0 Monocryl in a subcuticular fashion. Steri- Strips and Allevyn dressings were placed. Attention was then turned to the vagina where the Zumi uterine manipulator was removed from the uterus. The cervix was dilated to the # 8 Hegar dilator. The hysteroscope passed easily into the endometrial cavity. Both fallopian tube ostia were observed. There were no polyps or fibroids visible. The hysteroscope was removed. The uterus was measured from the internal os to the fundus and measured 4.5 cm. This was set on the NovaSure catheter and the generator. The NovaSure catheter passed easily into the endometrial cavity and was opened. The with of the uterus was 3.0 cm. This was set on the generator. The cervix was capped, the cavity assessment was performed and passed. The cycle was initiated and lasted 1 minute and 31 seconds. The power was 74 w. At the completion of the cycle the NovaSure catheter was closed, the cervix was uncapped, and the catheter was removed from the uterus. The single-tooth tenaculum was removed from the anterior lip of the cervix. The bivalve speculum was removed from the vagina. Sponge, lap, and instrument counts were correct x2. The patient tolerated the procedure well, and was taken to PACU in stable condition. Complications: none Post-operative Condition: stable Disposition: PACU Plan for aftercare: Home after recovery
[2022-02-09] MEDS: ONDANSETRON 4 MG/2 ML INJ IV (19:31)
[2022-02-09] MEDS: fentaNYL 100 MCG/2 ML INJ IV (19:32)
[2022-02-09] MEDS: OXYCODONE/ACETAMINOPHEN 5/325 TABLET 1 TAB PO (19:32)
== END 2022-02-09 20:15 | disposition home or self-care (01) ==
LOC: ED 14:00 → AC 15:05
PROVIDERS: Admitting Provider Obstetrics & Gynecology; Emergency Provider Emergency Medicine; PCP Family Medicine; Visit Provider Obstetrics & Gynecology
PROC: 0UT74ZZ Resection of Bilateral Fallopian Tubes, Percutaneous Endoscopic Approach (ICD-10-PCS; CPT 58661; principal; 2022-02-09 16:00)
PROC: 0U5B8ZZ Destruction of Endometrium, Via Natural or Artificial Opening Endoscopic (ICD-10-PCS; CPT 58563; 2022-02-09 16:00)
DX: N93.9 Abnormal uterine and vaginal bleeding, unspecified (principal); Z30.2 Encounter for sterilization; D64.9 Anemia, unspecified; N92.0 Excessive and frequent menstruation with regular cycle; Z20.822 Contact with and (suspected) exposure to COVID-19
CPT/HCPCS: 58661; 58563; 36415; 76830; 76856; 80053; 81003; 81015; 81025; 84702; 85025; 86850; 86900; 86901; 87086; 87635; 96374; 96375; 99284; C9803; G0378; J0171; J0330; J1100; J1885; J2405; J2704; J3010

== ENCOUNTER → 2022-05-03 09:53 | Outpatient (CLI) | payer OTHER, SELFPAY ==
[2022-05-03 11:10] LABS: Add Manual Diff / Slide Review NO; Basophils Absolute Auto 0 /uL (0-100); Eosinophils Absolute Auto 100 /uL (0-450); Eosinophils Percent Auto 4.7 % (2-4); Hematocrit 32.2 % (36-46); Hemoglobin 10.1 g/dL (12.0-16.0); Lymphocytes Absolute Auto 800 /uL (1100-4500); Lymphocytes Percent Auto 24.6 % (25-40); Mean Corpuscular HGB Conc 31.4 % (30-36); Mean Corpuscular Hemoglobin 23.9 PG (26-34); Monocytes Absolute Auto 300 /uL (0-900); Monocytes Percent Auto 9.8 % (3-14); Neutrophils Absolute Auto 1800 /uL (1500-7000); Neutrophils Percent Auto 59.9 % (50-75); Platelet Count 197 X10^3/uL (150-400); Red Blood Cell Count 4.24 X10^6/uL (4.0-5.2); Red Cell Distribution Width 15.7 % (11.6-14.8); White Blood Cell Count 3.1 X10^3/uL (4.5-11.0)
[2022-05-03 11:56] LABS: HEMOLYSIS < 15 (0-50); Iron 20 ug/dL (37-170)
[2022-05-03 12:06] LABS: Percent Iron Saturation 5 % (15-50); Total Iron Binding Capacity 393 ug/dL (265-497); Transferrin 284 mg/dL (206-381)
== END ==
PROVIDERS: PCP Pediatrics; Referring Provider Pediatrics; Visit Provider Pediatrics
DX: D64.9 Anemia, unspecified (principal); N92.1 Excessive and frequent menstruation with irregular cycle; N93.9 Abnormal uterine and vaginal bleeding, unspecified
CPT/HCPCS: 36415; 83540; 83550; 85025

== ENCOUNTER → 2022-08-11 13:00 | Outpatient (CLI) | payer OTHER, SELFPAY ==
[2022-08-11 13:31] LABS: Hematocrit 40.7 % (36-46); Hemoglobin 13.7 g/dL (12.0-16.0); Mean Corpuscular HGB Conc 33.7 % (30-36); Mean Corpuscular Hemoglobin 29.1 PG (26-34); Mean Corpuscular Volume 86.5 fL (80-100); Platelet Count 169 X10^3/uL (150-400); Red Cell Distribution Width 17.3 % (11.6-14.8); White Blood Cell Count 3.8 X10^3/uL (4.5-11.0)
[2022-08-11 14:23] LABS: Ferritin 78 ng/mL (6-137)
[2022-08-11 14:24] LABS: HEMOLYSIS < 15 (0-50); Iron 128 ug/dL (37-170)
[2022-08-11 14:35] LABS: Percent Iron Saturation 44 % (15-50); Total Iron Binding Capacity 288 ug/dL (265-497); Transferrin 209 mg/dL (206-381)
== END ==
PROVIDERS: PCP Family Medicine; Referring Provider Registered Nurse Diabetes Educator; Visit Provider Registered Nurse Diabetes Educator
DX: D50.9 Iron deficiency anemia, unspecified (principal)
CPT/HCPCS: 36415; 82728; 83540; 83550; 85027

== ENCOUNTER → 2022-12-10 13:49 | Outpatient (CLI) | payer OTHER, SELFPAY ==
[2022-12-10 15:10] LABS: Hematocrit 41.4 % (36-46); Hemoglobin 13.5 g/dL (12.0-16.0); Mean Corpuscular HGB Conc 32.7 % (30-36); Mean Corpuscular Hemoglobin 29.9 PG (26-34); Mean Corpuscular Volume 91.4 fL (80-100); Platelet Count 197 X10^3/uL (150-400); Red Blood Cell Count 4.53 X10^6/uL (4.0-5.2); Red Cell Distribution Width 12.6 % (11.6-14.8)
[2022-12-10 15:14] LABS: HEMOLYSIS < 15 (0-50); Iron 82 ug/dL (37-170)
[2022-12-10 15:23] LABS: Alanine Aminotransferase 20 IU/L (<35); Albumin Globulin Ratio 1.6 (1.0-2.8); Alkaline Phosphatase 57 U/L (38-126); Aspartate Aminotransferase 23 IU/L (14-36); BUN Creatinine Ratio 25.5 (6-22); Bilirubin Total 0.5 mg/dL (0.2-1.3); Blood Urea Nitrogen 14 mg/dL (7-17); Calcium 9.3 mg/dL (8.4-10.2); Carbon Dioxide 24 mmol/L (22-32); Chloride 99 mmol/L (98-107); Estimated Glomerular Filt Rate > 60 mL/min (>60); Globulin 3.2 g/dL (1.7-4.1); Glucose 93 mg/dL (70-100); HEMOLYSIS < 15 (0-50); Potassium 3.7 mmol/L (3.4-5.1); Sodium 139 mmol/L (137-145); Total Protein 8.2 g/dL (6.3-8.2)
[2022-12-10 15:51] LABS: Ferritin 83 ng/mL (6-137)
[2022-12-10 19:37] LABS: Transferrin 222 mg/dL (206-381)
[2022-12-10 20:34] LABS: Percent Iron Saturation 27 % (15-50); Total Iron Binding Capacity 306 ug/dL (265-497)
== END ==
PROVIDERS: PCP Family Medicine; Referring Provider Family Medicine; Visit Provider Family Medicine
DX: F98.8 Other specified behavioral and emotional disorders with onset usually occurring in childhood and adolescence (principal); N92.1 Excessive and frequent menstruation with irregular cycle
CPT/HCPCS: 36415; 80053; 82728; 83540; 83550; 85027

== ENCOUNTER → 2022-12-17 14:47 | Outpatient (CLI) | payer OTHER, SELFPAY ==
--- NOTE | 2022-12-17 14:48 | DI.US.S_ITS ---
PROCEDURE: US PELVIC COMPLETE INDICATIONS: Menorrhagia TECHNIQUE: Real-time scanning was performed of the pelvic organs, with image documentation. Additional endovaginal scanning was necessary due to incomplete visualization of the adnexal and endometrial structures by transabdominal scanning. COMPARISON: [facility], , US PELVIC COMPLETE, 02/09/2022, 11:05. FINDINGS: Uterus: Uterus is anteverted and normal in size at 9.1 x 6.1 x 5.1 cm. The myometrium is heterogeneous with a focus measuring 9 x 10 x 7 mm in the mid posterior intramural region. The endometrium measures 3 mm combined thickness. Endometrium is mildly heterogeneous. Ovaries: The right ovary measures 1.5 x 2.3 x 2.1 cm, with a calculated ovarian volume of 4 cc. The left ovary measures 2.3 x 2.5 x 1.4 cm, with a calculated ovarian volume of 4 cc. The ovaries have a normal sonographic appearance. Less than 12 follicles can be seen in each ovary. No adnexal masses are seen. Other: No pathologic free abdominal or pelvic fluid. IMPRESSION: Focus of heterogeneous echogenicity within the uterus suggestive of fibroids. We strive to produce accurate, complete, and clear reports of imaging services. To assist us in improving patient care, this report was composed using standard report templates and voice recognition software. Therefore, it may contain abnormal punctuation, insertions and/or omissions. Occasional wrong-word or sound-alike substitutions may occur. Though we review the report and make efforts to correct it, we do recommend that the report be read carefully in proper context to recognize any text inaccuracies. Dictated by: Karina Bruno M.D. on 12/17/2022 at 16:50 Approved by: Karina Bruno M.D. on 12/17/2022 at 16:55
== END ==
PROVIDERS: PCP Family Medicine; Referring Provider Obstetrics & Gynecology; Visit Provider Obstetrics & Gynecology
DX: N93.9 Abnormal uterine and vaginal bleeding, unspecified (principal)
CPT/HCPCS: 76830; 76856; 93976

== ENCOUNTER → 2023-01-24 10:48 | Outpatient (CLI) | payer OTHER, SELFPAY ==
--- NOTE | 2023-01-24 10:50 | DI.MG.S_ITS ---
BILATERAL DIGITAL SCREENING MAMMOGRAM 3D/2D WITH CAD: 01/24/2023 CLINICAL: Routine screening. Baseline exam. No prior exams were available for comparison. Both breasts are extremely dense, which lowers the sensitivity of mammography (category d />75% glandular tissue). Current study was also evaluated with a Computer Aided Detection (CAD) system. No significant masses, calcifications, or other findings are seen in either breast. IMPRESSION: NEGATIVE There is no mammographic evidence of malignancy. A 1 year screening mammogram is recommended. Based on the Tyrer Cuzick model (a risk assessment model) the patient's lifetime risk is 17.3% and her 10 year risk is 2.4%. According to the ACR, ACS, and NCCN guidelines, an annual breast MRI exam along with mammogram is recommended if the patient's lifetime risk is 20% or greater. This exam was interpreted at Station ID: [id number]. NOTE: For mammograms, a report in lay terms will be sent to the patient. Approximately 15% of breast malignancies will not be visualized mammographically. In the management of a palpable breast mass, a negative mammogram must not discourage biopsy of a clinically suspicious lesion. Electronically Signed By: Ciera cook/dalia:01/24/2023 13:30:13 letter sent: Normal Exam ACR BI-RADS Category 1: Negative 3341F
== END ==
PROVIDERS: PCP Family Medicine; Referring Provider Family Medicine; Visit Provider Family Medicine
DX: Z12.31 Encounter for screening mammogram for malignant neoplasm of breast (principal)
CPT/HCPCS: 77063; 77067

== ENCOUNTER 2023-03-28 17:46 | Emergency (ER) | payer OTHER, SELFPAY ==
[2023-03-28 18:02] VITALS: BP 115/58; PULSE 90; RESP 12; TEMP 36.9; O2SAT 100; BMI 20.7
[2023-03-28 18:37] LABS: Add Manual Diff / Slide Review NO; Basophils Absolute Auto 0 /uL (0-100); Basophils Percent Auto 0.7 % (0-2); Eosinophils Absolute Auto 0 /uL (0-450); Eosinophils Percent Auto 0.7 % (2-4); Hematocrit 35.5 % (36-46); Hemoglobin 11.9 g/dL (12.0-16.0); Lymphocytes Absolute Auto 2100 /uL (1100-4500); Lymphocytes Percent Auto 50.3 % (25-40); Mean Corpuscular HGB Conc 33.5 % (30-36); Mean Corpuscular Hemoglobin 29.6 PG (26-34); Mean Corpuscular Volume 88.3 fL (80-100); Monocytes Absolute Auto 400 /uL (0-900); Monocytes Percent Auto 9.5 % (3-14); Neutrophils Absolute Auto 1600 /uL (1500-7000); Neutrophils Percent Auto 38.8 % (50-75); Platelet Count 174 X10^3/uL (150-400); Red Blood Cell Count 4.01 X10^6/uL (4.0-5.2); Red Cell Distribution Width 13.7 % (11.6-14.8); White Blood Cell Count 4.2 X10^3/uL (4.5-11.0)
[2023-03-28 18:51] LABS: Pregnancy Test Serum,Qual Negative (Negative)
[2023-03-28 18:52] LABS: Alanine Aminotransferase 205 IU/L (<35); Albumin 4.2 g/dL (3.5-5.0); Albumin Globulin Ratio 1.2 (1.0-2.8); Alkaline Phosphatase 160 U/L (38-126); Aspartate Aminotransferase 82 IU/L (14-36); BUN Creatinine Ratio 22.4 (6-22); Bilirubin Total 0.5 mg/dL (0.2-1.3); Blood Urea Nitrogen 13 mg/dL (7-17); Calcium 8.9 mg/dL (8.4-10.2); Carbon Dioxide 30 mmol/L (22-32); Chloride 103 mmol/L (98-107); Creatine Kinase 35 U/L (30-135); Estimated Glomerular Filt Rate > 60 mL/min (>60); Globulin 3.5 g/dL (1.7-4.1); Glucose 122 mg/dL (70-100); HEMOLYSIS < 15 (0-50); Lipase 97 U/L (23-300); Potassium 3.6 mmol/L (3.4-5.1); Sodium 138 mmol/L (137-145); Total Protein 7.7 g/dL (6.3-8.2)
[2023-03-28 19:02] LABS: Troponin I 0.038 ng/mL (0.01-0.034)
[2023-03-28 21:48] LABS: Creatine Kinase 26 U/L (30-135)
[2023-03-28 22:01] LABS: Troponin I 0.039 ng/mL (0.01-0.034)
--- NOTE | 2023-03-28 22:18 | ED_ITS ---
HPI - Neuro Symptoms/Deficit General Chief Complaint: Neuro Symptoms/Deficit Stated Complaint: Face tingling/numbness worsening 3/4 days, jaw sourav Time Seen by Provider: 03/28/23 18:26 Source: patient Mode of arrival: Ambulatory History of Present Illness HPI Narrative: Patient is a 42-year-old female is here for evaluation of proximally 2 weeks of feeling poorly and having fatigue. She states she initially had some tingling in her right hand and right arm that has moved up to the right side of her face and then is now encompassing both sides of her face. She is not having any tingling in her hands or arms. She also had a day or 2 of having fevers which have resolved. She would other family members who had symptoms as well. No sore throat. No headache. No abdominal pain. No nausea or vomiting. No urinary symptoms. No change in bowel habits. On Anticoagulants: No Related Data Previous Rx's Medication Instructions Recorded valacyclovir 1 gram tablet See Rx Instructions .Route 01/06/22 .COMPLEX #4 tabs dextroamphetamine-amphetamine 5 mg 5 mg PO QPM ADHD #30 tabs 03/07/23 tablet lisdexamfetamine 50 mg capsule 50 mg PO DAILY #90 caps 03/07/23 Allergies Allergy/AdvReac Type Severity Reaction Status Date / Time miconazole AdvReac Intermediate Rash Verified 03/28/23 18:02 [From Neosporin AF] Review of Systems Review of Systems ROS Unobtainable: All systems reviewed & are unremarkable except as noted in HPI and below Hematologic/Lymphatic On Anticoagulants: No Patient History Medical History Anemia (2006) Anovulatory cycle Chicken pox (1990) Congenital cataract (1980) Endometrial thickening on ultrasound Fractures (1992) 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 Grandfather Cirrhosis of liver Mother No problems noted. Grandmother Type 1 diabetes Sister No problems noted. Sister No problems noted. Sister No problems noted. Grandfather No problems noted. Social History household members: spouse Smoking Status: Never smoker alcohol intake: never Smoking Status: Never smoker alcohol intake frequency: 0-2 drinks per day Substance Use Type: does not use Exam Initial Vital Signs Initial Vital Signs: Vital Signs Temperature 98.5 F 03/28/23 18:02 Pulse Rate 90 03/28/23 18:02 Respiratory Rate 12 03/28/23 18:02 Blood Pressure 115/58 L 03/28/23 18:02 Pulse Oximetry 100 03/28/23 18:02 Oxygen Delivery Method Room Air 03/28/23 18:02 Const General: cooperative, comfortable and No ill appearing HENMT Head: normal to inspection and normocephalic Ears: TM's normal bilaterally Mouth: oral mucosae normal Neck Lymphatic: lymphadenopathy (He anterior and posterior cervical lymphadenopathy) Resp Effort & Inspection: normal respiratory effort Auscultation: clear to auscultation bilaterally Cardio Rate: regular rate GI Inspection: normal to inspection Palpation: soft, No splenomegaly and No tender Skin General: no rashes or lesions noted Neuro General: patient alert, patient awake, patient oriented x3 and moves all extremities Extrem General: normal to inspection and capillary refill normal Psych Appearance: grossly normal and well kempt Course Orders Ordered: ED Orders 03/28/23 21:25 Troponin & CK Cardiac Panel Stat Vital Signs Vital signs: Vital Signs - 8 hr 03/28/23 23:02 Pulse Rate 71 Respiratory Rate 18 Blood Pressure 106/70 Pulse Oximetry 100 Oxygen Delivery Method Room Air MDM - Neuro Symptoms/Deficit Lab Data Attestation: I reviewed the patient's lab results. 03/28/23 18:21 03/28/23 18:21 Labs: Lab Results 03/28/23 03/28/23 03/28/23 Range/Units 18:21 18:21 18:21 WBC 4.2 L (4.5-11.0) X10^3/uL RBC 4.01 (4.0-5.2) X10^6/uL Hgb 11.9 L (12.0-16.0) g/dL Hct 35.5 L (36-46) % MCV 88.3 (80-100) fL MCH 29.6 (26-34) PG MCHC 33.5 (30-36) % RDW 13.7 (11.6-14.8) % Plt Count 174 (150-400) X10^3/uL Neut % (Auto) 38.8 L (50-75) % Lymph % (Auto) 50.3 H (25-40) % [place] % (Auto) 9.5 (3-14) % Eos % (Auto) 0.7 L (2-4) % Baso % (Auto) 0.7 (0-2) % Neut # (Auto) 1600 (1460-5790) /uL Lymph # (Auto) 2100 (6049-3279) /uL [place] # (Auto) 400 (0-900) /uL Eos # (Auto) 0 (0-450) /uL Baso # (Auto) 0 (0-100) /uL Sodium 138 (137-145) mmol/L Potassium 3.6 (3.4-5.1) mmol/L Chloride 103 (98-107) mmol/L Carbon Dioxide 30 (22-32) mmol/L BUN 13 (7-17) mg/dL Creatinine 0.58 (0.52-1.04) mg/dL Estimated GFR > 60 (>60) mL/min BUN/Creatinine Ratio 22.4 H (6-22) Glucose 122 H (70-100) mg/dL Calcium 8.9 (8.4-10.2) mg/dL Total Bilirubin 0.5 (0.2-1.3) mg/dL AST 82 H (14-36) IU/L ALT 205 H (<35) IU/L Alkaline Phosphatase 160 H (38-126) U/L Total Creatine Kinase 35 (30-135) U/L CK-MB (CK-2) TNP CK-MB (CK-2) Rel Index TNP Troponin I 0.038 H (0.01-0.034) ng/mL Total Protein 7.7 (6.3-8.2) g/dL Albumin 4.2 (3.5-5.0) g/dL Globulin 3.5 (1.7-4.1) g/dL Albumin/Globulin Ratio 1.2 (1.0-2.8) Lipase 97 (23-300) U/L Serum , Qual Negative (Negative) Monoscreen (Negative) 03/28/23 03/28/23 Range/Units 18:21 21:25 WBC (4.5-11.0) X10^3/uL RBC (4.0-5.2) X10^6/uL Hgb (12.0-16.0) g/dL Hct (36-46) % MCV (80-100) fL MCH (26-34) PG MCHC (30-36) % RDW (11.6-14.8) % Plt Count (150-400) X10^3/uL Neut % (Auto) (50-75) % Lymph % (Auto) (25-40) % [place] % (Auto) (3-14) % Eos % (Auto) (2-4) % Baso % (Auto) (0-2) % Neut # (Auto) (3203-4454) /uL Lymph # (Auto) (6866-5472) /uL [place] # (Auto) (0-900) /uL Eos # (Auto) (0-450) /uL Baso # (Auto) (0-100) /uL Sodium (137-145) mmol/L Potassium (3.4-5.1) mmol/L Chloride (98-107) mmol/L Carbon Dioxide (22-32) mmol/L BUN (7-17) mg/dL Creatinine (0.52-1.04) mg/dL Estimated GFR (>60) mL/min BUN/Creatinine Ratio (6-22) Glucose (70-100) mg/dL Calcium (8.4-10.2) mg/dL Total Bilirubin (0.2-1.3) mg/dL AST (14-36) IU/L ALT (<35) IU/L Alkaline Phosphatase (38-126) U/L Total Creatine Kinase 26 L (30-135) U/L CK-MB (CK-2) TNP CK-MB (CK-2) Rel Index TNP Troponin I 0.039 H (0.01-0.034) ng/mL Total Protein (6.3-8.2) g/dL Albumin (3.5-5.0) g/dL Globulin (1.7-4.1) g/dL Albumin/Globulin Ratio (1.0-2.8) Lipase (23-300) U/L Serum , Qual (Negative) Monoscreen Positive H (Negative) ECG Data Attestation: I personally reviewed and interpreted this ECG as follows: Interpretation: Sinus rhythm Ventricular rate 81 Normal axis Normal QRS Normal QTC No ST T wave changes MDM Narrative Medical decision making narrative: Patient does have anterior posterior cervical lymphadenopathy. She is mono positive. No respiratory distress. Is hydrated. She is no abdominal tenderness and no splenomegaly. I suspect that this is what is causing her to have all of the fatigue for the past couple weeks. The suspect that the tingling that she is having is most likely the lymphadenopathy she is no chest pain. No shortness of breath. No indication for antibiotics. I did discuss with a positive mono test with the patient. Discussed return precautions follow-up instructions. She expressed understanding and agreement. Discharge Plan Departure Patient Disposition: Home Clinical Impression: Mononucleosis Instructions: DI for Mononucleosis-Adult Activity Restrictions/Additional Instructions: Recommend that you continue to take all of your medications as directed. Patient that you were increasing your fluid intake. You can take Tylenol or ibuprofen for any body aches or fevers. Return to the emergency department for new or worsening symptoms. Prescriptions: No Action valacyclovir 1 gram tablet See Rx Instructions .ROUTE .COMPLEX Qty: 4 3RF Rx Instructions: Take 2 tabs Q12H for 1 day ; dextroamphetamine-amphetamine 5 mg tablet 5 mg PO QPM Qty: 30 0RF Rx Instructions: This is in addition to morning stimulant dose, with this dose sometime between 1-3 pm daily. lisdexamfetamine 50 mg capsule 50 mg PO DAILY Qty: 90 0RF Referrals: Fanta Yee DO [Primary Care Provider] - Stand Alone Forms: Patient Portal/API
[2023-03-28 22:50] LABS: Monotest Positive (Negative)
[2023-03-28 23:02] VITALS: BP 106/70; PULSE 71; RESP 18; O2SAT 100
== END 2023-03-28 23:05 | disposition home or self-care (01) ==
PROVIDERS: Emergency Provider Emergency Medicine; PCP Family Medicine
DX: B27.90 Infectious mononucleosis, unspecified without complication (principal); R07.9 Chest pain, unspecified
CPT/HCPCS: 36415; 80053; 82550; 83690; 84484; 84703; 85025; 86318; 93005; 99283; 99284

== ENCOUNTER → 2023-11-11 11:00 | Outpatient (CLI) | payer OTHER, SELFPAY | PROVIDERS: PCP Family Medicine; Visit Provider Physician Assistant | DX: L02.619 Cutaneous abscess of unspecified foot (principal) | CPT/HCPCS: 87070; 87075; 87077; 87147; 87205 ==

== ENCOUNTER → 2024-07-13 09:19 | Outpatient (CLI) | payer OTHER, SELFPAY ==
[2024-07-13 10:00] LABS: Add Manual Diff / Slide Review NO; Basophils Absolute Auto 0 /uL (0-100); Basophils Percent Auto 0.8 % (0-2); Eosinophils Absolute Auto 100 /uL (0-450); Eosinophils Percent Auto 2.5 % (2-4); Hematocrit 38.2 % (36-46); Lymphocytes Absolute Auto 1100 /uL (1100-4500); Lymphocytes Percent Auto 28.3 % (25-40); Mean Corpuscular Hemoglobin 30.6 PG (26-34); Mean Corpuscular Volume 89.9 fL (80-100); Monocytes Absolute Auto 400 /uL (0-900); Monocytes Percent Auto 9.8 % (3-14); Neutrophils Absolute Auto 2400 /uL (1500-7000); Neutrophils Percent Auto 58.6 % (50-75); Platelet Count 173 X10^3/uL (150-400); Red Blood Cell Count 4.24 X10^6/uL (4.0-5.2); Red Cell Distribution Width 12.3 % (11.6-14.8); White Blood Cell Count 4.1 X10^3/uL (4.5-11.0)
[2024-07-13 10:07] LABS: Hemoglobin A1C% w Est Avg Glu 5.1 % (4.0-6.0)
[2024-07-13 12:54] LABS: HEMOLYSIS < 15 (0-50); Iron 91 ug/dL (37-170)
[2024-07-13 12:56] LABS: Alanine Aminotransferase 13 IU/L (<35); Albumin 4.2 g/dL (3.5-5.0); Albumin Globulin Ratio 1.6 (1.0-2.8); Alkaline Phosphatase 49 U/L (38-126); Aspartate Aminotransferase 24 IU/L (14-36); BUN Creatinine Ratio 16.2 (6-22); Bilirubin Total 0.7 mg/dL (0.2-1.3); Blood Urea Nitrogen 11 mg/dL (7-17); Calcium 9.2 mg/dL (8.4-10.2); Carbon Dioxide 26 mmol/L (22-32); Chloride 104 mmol/L (98-107); Cholesterol 159 mg/dL (140-199); Estimated Glomerular Filt Rate > 60 mL/min (>60); Globulin 2.6 g/dL (1.7-4.1); Glucose 91 mg/dL (70-100); HDL Cholesterol 42 mg/dL (40-60); HEMOLYSIS < 15 (0-50); LDL Cholesterol Calculated 95 mg/dL (<100); Potassium 4.1 mmol/L (3.4-5.1); Sodium 136 mmol/L (137-145); Total Protein 6.8 g/dL (6.3-8.2); Triglycerides 110 mg/dL (35-150)
[2024-07-13 13:21] LABS: Percent Iron Saturation 36 % (15-50); Total Iron Binding Capacity 252 ug/dL (265-497); Transferrin 185 mg/dL (206-381)
[2024-07-13 13:27] LABS: Ferritin 51 ng/mL (6-137)
== END ==
PROVIDERS: PCP Family Medicine; Referring Provider Family Medicine; Visit Provider Family Medicine
DX: D64.9 Anemia, unspecified (principal); R74.8 Abnormal levels of other serum enzymes; R73.09 Other abnormal glucose
CPT/HCPCS: 36415; 80053; 80061; 82728; 83036; 83540; 83550; 85025; 86140

== ENCOUNTER → 2025-05-13 14:46 | Outpatient (CLI) | payer OTHER, SELFPAY ==
--- NOTE | 2025-05-13 14:48 | DI.US.S_ITS ---
PROCEDURE: US PELVIC COMPLETE INDICATIONS: abnormal uterine bleeding, f/u possible fibroids seen 2022 TECHNIQUE: Real-time scanning was performed of the pelvic organs, with image documentation. Additional endovaginal scanning was necessary due to incomplete visualization of the adnexal and endometrial structures by transabdominal scanning. COMPARISON: [facility], US, US PELVIC COMPLETE, 12/17/2022, 15:04. FINDINGS: Uterus: Uterus appears mildly enlarged measures approximately 10.0 x 6.5 x 5.5 cm. Diffuse heterogeneous echogenicity and thickened myometrium with increased color Doppler flow in the myometrium, is nonspecific commonly may be related to diffuse adenomyosis, other rare causes could be considered, diffuse leiomyomatosis, endometrial neoplasm. MRI female pelvis may be useful for further evaluation. The endometrium echo complex measures 3 mm combined thickness. At least 1 focal uterine leiomyoma midline posterior intramural 2.5 x 2.1 x 1.5 cm Ovaries: The right ovary measures 3.0 x 1.9 x 1.4 cm, with a calculated ovarian volume of 4.0 cc. The left ovary measures 2.4 x 2.0 x 1.2 cm, with a calculated ovarian volume of 3.0 cc. The ovaries have a normal sonographic appearance. Less than 12 follicles can be seen in each ovary. No adnexal masses are seen. Other: No pathologic free abdominal or pelvic fluid. IMPRESSION: Enlarged heterogeneous echogenicity uterus as discussed above commonly adenomyosis or other process. Follow-up is needed. MRI female pelvis may be useful for further evaluation. 2.5 cm Leiomyoma. We strive to produce accurate, complete, and clear reports of imaging services. To assist us in improving patient care, this report was composed using standard report templates and voice recognition software. Therefore, it may contain abnormal punctuation, insertions and/or omissions. Occasional wrong-word or sound-alike substitutions may occur. Though we review the report and make efforts to correct it, we do recommend that the report be read carefully in proper context to recognize any text inaccuracies. Dictated by: Mario Bang M.D. on 05/13/2025 at 16:04 Approved by: Mario Bang M.D. on 05/13/2025 at 16:13
== END ==
PROVIDERS: PCP Family Medicine; Referring Provider Family Medicine; Visit Provider Family Medicine
DX: D25.1 Intramural leiomyoma of uterus (principal); N93.9 Abnormal uterine and vaginal bleeding, unspecified; N85.2 Hypertrophy of uterus
CPT/HCPCS: 76830; 76856

== ENCOUNTER → 2025-05-21 09:15 | Outpatient (CLI) | payer OTHER, SELFPAY ==
[2025-05-21 09:53] LABS: Hematocrit 37.2 % (36-46); Hemoglobin 13.1 g/dL (12.0-16.0); Mean Corpuscular HGB Conc 35.3 % (30-36); Mean Corpuscular Hemoglobin 31.8 PG (26-34); Mean Corpuscular Volume 90.1 fL (80-100); Platelet Count 179 X10^3/uL (150-400)
[2025-05-21 10:01] LABS: Hemoglobin A1C% w Est Avg Glu 5.4 % (4.0-6.0)
[2025-05-21 10:29] LABS: Alanine Aminotransferase 15 IU/L (<35); Albumin 4.5 g/dL (3.5-5.0); Albumin Globulin Ratio 1.6 (1.0-2.8); Alkaline Phosphatase 52 U/L (38-126); Blood Urea Nitrogen 17 mg/dL (7-17); Calcium 9.3 mg/dL (8.4-10.2); Carbon Dioxide 25 mmol/L (22-32); Chloride 105 mmol/L (98-107); Cholesterol 192 mg/dL (140-199); Estimated Glomerular Filt Rate > 60 mL/min (>60); Globulin 2.8 g/dL (1.7-4.1); Glucose 93 mg/dL (70-99); HDL Cholesterol 43 mg/dL (40-60); HEMOLYSIS < 15 (0-50); Potassium 4.5 mmol/L (3.4-5.1); Sodium 137 mmol/L (137-145); Total Protein 7.3 g/dL (6.3-8.2); Triglycerides 122 mg/dL (35-150)
[2025-05-21 10:58] LABS: TSH w/ Reflex to FT4 0.84 uIU/mL (0.47-4.68)
[2025-05-21 11:02] LABS: Ferritin 62 ng/mL (6-137)
[2025-05-22 03:40] LABS: CRP, High Sensitivity 1.54 mg/L (0.00-3.00)
== END ==
PROVIDERS: PCP Family Medicine; Referring Provider Family Medicine; Visit Provider Family Medicine
DX: Z01.419 Encounter for gynecological examination (general) (routine) without abnormal findings (principal); R63.5 Abnormal weight gain; R93.89 Abnormal findings on diagnostic imaging of other specified body structures; D69.6 Thrombocytopenia, unspecified; D64.9 Anemia, unspecified; R53.83 Other fatigue; Z80.49 Family history of malignant neoplasm of other genital organs
CPT/HCPCS: 36415; 80053; 80061; 82627; 82728; 83036; 84443; 85027; 86140

== ENCOUNTER 2025-08-19 08:03 | Day surgery (SDC) | payer OTHER, SELFPAY ==
[2025-08-06 14:36] VITALS: BMI 23.5
[2025-08-19] VITALS (7 sets, daily range): BP systolic 107–121; BP diastolic 66–88; PULSE 50–64; RESP 14–16; TEMP 36.3–36.6; O2SAT 94–100
--- NOTE | 2025-08-19 | PATH_ITS ---
[facility] Accession Number: [id number] No. of containers..01 Tissue . 01 Material submitted: . uterus - UTERUS, CERVIX . 01 Diagnosis: UTERUS WITH CERVIX, HYSTERECTOMY: Uterus with leiomyomata and inactive endometrium. Cervix with mixed inflammation and erosion. No atypia or malignancy is identified. MRV 08/29/2025 1408 Local . 01 Electronically signed: . Joselo Ellison MD, Dermatopathologist NPI- [id number] . 01 Gross description: . The specimen is received in formalin with two patient identifiers and cervix, uterus and consists of a uterus with attached cervix. The uterine corpus measures 8.2 x 6.5 x 6.1 cm, 149 grams, and is surfaced by a smooth white glistening serosa. There is a 0.2 and 0.6 cm faint white subserosal nodule located on the posterior wall. There is a 3.5 x 3.4 x 1.4 cm attached cervix. The cervix has a 1.5 x 1.1 x 0.2 cm ulcerated area which occupies predominantly the 6-9-12 o'clock aspect of the cervix. In addition, there is a 0.8 cm slit-like patent os. The endocervical canal is chinchilla, trabeculated, and free of exophytic lesions. Sectioning through the myometrium shows a red-chinchilla, trabeculated, slightly thickened cut surface measuring up to 2.6 cm in thickness. There are two white whorled well-circumscribed nodules measuring 1.0 x 0.8 x 0.8 cm and 0.5 x 0.4 x 0.4 cm. The nodules are unremarkable and have no evidence of cystic change or necrosis. There is a 3.1 x 1.5 cm, blood-tinged, triangular endometrial lining which averages 0.2 cm in thickness and has a finely granular, unremarkable mucosa. No exophytic lesions or masses are appreciated on the endometrium. [place] sections are submitted as follows: . A1: Posterior cervix. A2: Anterior cervix. A3: Additional section of cervix at 11 o'clock. A4-A5: Full-thickness endomyometrium, posterior (composite section). A6: Full-thickness endomyometrium anterior. A7: [place] sections of myometrial nodules. ([id number]) /MRV 08/29/2025 [facility] Local . 01 Pathologist provided ICD-10: N94.6 . 01 CPT . 505751 Specimen Comment: A courtesy copy of this report has been sent to [facility] Pathology Performed at: [address] [address], [place], [place] [id number] MD Robert Andersen MD Phone: [phone]
[2025-08-19] MEDS: PHENAZOPYRIDINE 100 MG TABLET 200 MG PO ×2 (08:26→08:45)
[2025-08-19] MEDS: LACTATED RINGERS 1,000 ML 42 ML IV (08:45)
--- NOTE | 2025-08-19 10:11 | PM.PREOP ---
Pre-operative Note COVID-19 COVID-19 status: Not tested Interval Note History & Physical reviewed/Exam performed by Physician: Yes Changes to H&P: No ASA Class (for procedural sedation): II
--- NOTE | 2025-08-19 11:35 | SUR.OPER ---
Lithotomy on padded OR bed. [place] Pad Positioner under torso. Head on pillow, arms padded and tucked at sides. Legs secured in padded yellow fins stirrups.
--- NOTE | 2025-08-19 13:03 | P.OP_ITS ---
Operative Date/Time/Diagnoses Date of procedure: 08/19/25 Time of procedure: 11:15 Pre-op diagnosis: Dysmenorrhea, irregular bleeding Post-op diagnosis: same Procedure & Clinicians Procedure: Procedures Operation Date: 08/19/25 09:45 Actual Procedure Side Surgeon p Laparoscopic Total Hysterectomy, cystoscopy Madhuri Cardona, DO Indications: Patient is a 45yo F with dysmenorrhe and irregular bleeding which is bothersome and disruptive to daily activities. She has tried multiple hormonal options including mirena IUD but had almost daily bleeding x 1 year with this device. 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 Patient strongly desires definitive management with total hysterectomy. Surgeon: Madhuri Cardona Motorcycle Fabricator: Anastacia Thorpe Anesthesia Type: General Operative Notes Findings: 10wk size uterus, stenotic cervical os, no fibroids or masses, normal ovaries bilaterally, surgically absent fallopian tubes cystoscopy- bilateral ureteral jets and intact bladder wall Closure Type: primary Specimen(s): uterus Applied: none Estimated blood loss (mL): 100 Blood products transfused: none Procedure in detail: Under GA in the dorsal lithotomy position, the patient was prepped and drapped in the usual sterile fashion. Beginning at the vagina, a santana catheter was inserted under sterile conditions and left in situ for the remainder of the case. A weighted speculum was then placed in the vagina and with the help of a right angle retractor the cervix was visualized and grasped anteriorly with a single tooth tenaculum. The cervical os was dialated up to a #6 Hegar dilator and a V-Care manipulator with a ceramic cup was inserted. The weighted speculum was then removed. Attention was then turned to the abdomen. 0.25% Marcaine solution was used for infiltration of all port sites. Beginning in the subumbilical area, the skin was first infiltrated with ~ 2 cc of the marcaine solution, then a 5 mm incision was made through the skin with a #11 blade, and finally, the Veress needle was inserted uneventfully in the peritoneal cavity. The opening pressure was < 8 mmHg. The peritoneal cavity was insufflated with CO2 gas to a maximum pressure of 15 mmHg. The Veress needle was removed and a 5 mm trocar was introduced without difficulty through this site into the peritoneal cavity. The laparoscope was then introduced and confirmation of entry was made. Examination of the peritoneal cavity revealed no signs of injury from entry and normal anatomical structures. The patient was then placed in steep Trendelenburg and two more 5 mm trocars were placed, one on the left and two on the right, in the standard technique, taking care to avoid the epigastric vessels. All trocars were placed under direct visualization with no inadvertent damage to underlying structures. The uterus was upheld from below and revealed a normal uterus and ovaries. The fallopian tubes were noted to be surgically absent. The left round ligament was cauterized and dissected with the ligasure device and the anterior leaf of the broad ligament dissected down to the anterior lower uterine segment. Once the bladder was appropriately dissected free from the lower anterior uterine segment and the tissues skeletonized, the uterine arteries were bilaterally clamped and ligated. The same procedure was performed on the right adnexa. Pedicles were checked and hemostatic. At the level of the plastic cup of the uterine manipulator, the vaginal vault was incised circumferentially with monopolar scissors. The uterus and cervix was delivered through the vagina and sent to pathology. The vaginal vault was then closed with an 0 vicryl running stitch ensuring hemostasis of the cuff edges from below. Following vault closure, the gas was then re-insufflated and inspection of all areas was made to ensure hemostasis. The vaginal cuff and ovarian pedicles were insected and noted to be hemostatic. All ports were removed under direct visualization and hemostasis noted. All the incision sites were then closed with 4-0 monocryl sutures and dermabond over the incisions. The santana catheter was then removed and a cystoscopy was performed noting an intact bladder without injury and bilateral ureteral jets. The bladder was drained and cysto removed. At the end of the procedure, all sponges, instruments, and sharps were counted and correct. Estimated blood loss was 100 ml. The patient was taken to recovery in stable condition. Complications: none Post-operative Condition: stable Disposition: same day surgery Plan for aftercare: discharge home after recovery from anesthesia, pelvic rest x 6 weeks, follow up in 2wks for post op visit
[2025-08-19] MEDS: ACETAMINOPHEN 325 MG TABLET 975 MG PO (13:49)
== END 2025-08-19 14:45 | disposition home or self-care (01) ==
PROVIDERS: PCP Family Medicine; Referring Provider Family Medicine; Visit Provider Obstetrics & Gynecology
PROC: 0UT94ZZ Resection of Uterus, Percutaneous Endoscopic Approach (ICD-10-PCS; CPT 58570; principal; 2025-08-19 09:45)
DX: N94.6 Dysmenorrhea, unspecified (principal); N80.03 Adenomyosis of the uterus; D25.9 Leiomyoma of uterus, unspecified; Z80.49 Family history of malignant neoplasm of other genital organs
CPT/HCPCS: 58570; J0689; J1100; J1171; J1885; J2250; J2405; J2704; J3010; J3490; J7120